=== PATIENT | female | born 1985 | race Caucasian/White ===

== ENCOUNTER 2023-10-19 10:56 | Inpatient (IN) | payer MEDICAID, OTHER, SELFPAY ==
[~2023-10-19] VITALS: Ht 157.5 cm; Wt 84.3 kg
[2023-10-19] MEDS ORDERED: ONDANSETRON 4MG 2ML VIAL IV ONE (12:00)
[2023-10-19] MEDS ORDERED: NS 1,000 ML IV ONE (12:00)
[2023-10-19] MEDS ORDERED: IPRATROPIUM 0.5MG/ALBUTEROL 2.5MG INH SOL UD 3ML (DUONEB) NEB ONE (12:05)
[2023-10-19] MEDS ORDERED: KETOROLAC 30 MG/ML 1ML VIAL IV ONE ×2 (12:35→22:00)
[2023-10-19 12:42] LABS: BASO # 0.1 10^3/uL (0.0-0.2); BASO % 0.5 % (0.0-1.0); EOS % 0.2 % (0.0-3.0); HEMATOCRIT 38.3 % (36.0-47.0); HEMOGLOBIN 13.7 g/dl (12.0-15.5); LYMPH # 1.8 10^3/uL (1.5-5.0); LYMPH % 16.1 % (24.0-44.0); MEAN CORPUSCULAR HEMOGLOBIN 36.8 pg (27.0-33.0); MEAN CORPUSCULAR HGB CONC 35.8 g/dl (32.0-36.5); MONO # 0.7 10^3/uL (0.0-0.8); MONO % 6.7 % (2.0-8.0); NEUTROPHILS # 8.3 10^3/uL (1.5-8.5); PLATELET COUNT, AUTOMATED 404 10^3/uL (150-450); RED BLOOD COUNT 3.72 10^6/uL (4.00-5.40)
[2023-10-19 13:17] LABS: CK-MB VALUE MASS < 1.0 NG/ML (<3.6); CPK CREATINE PHOSPHOKINASE 141 U/L (34-145)
[2023-10-19 13:23] LABS: HCG, SERUM QUALITATIVE NEGATIVE (NEGATIVE)
[2023-10-19 14:16] LABS: LIPASE 14 U/L (12-53)
[2023-10-19 14:28] LABS: ALBUMIN 2.3 G/DL (3.2-5.2); ALKALINE PHOSPHATASE 80 U/L (46-116); ALT/SGPT 20 U/L (7.0-40); AST/SGOT 33 U/L (<34); BILIRUBIN,DIRECT 0.3 MG/DL (<0.4); BILIRUBIN,TOTAL 0.6 MG/DL (0.3-1.2); BLOOD UREA NITROGEN < 5 MG/DL (9-23); CALCIUM LEVEL 7.3 MG/DL (8.5-10.1); CARBON DIOXIDE LEVEL 26 MMOL/L (20-31); CHLORIDE LEVEL 102 MMOL/L (98-107); CREATININE FOR GFR 0.57 MG/DL (0.55-1.30); GLOMERULAR FILTRATION RATE > 60.0 (>60); GLUCOSE, FASTING 119 MG/DL (60-100); MAGNESIUM LEVEL 1.1 MG/DL (1.8-2.4); POTASSIUM SERUM 2.8 MMOL/L (3.5-5.1); SODIUM LEVEL 141 MMOL/L (136-145); TOTAL PROTEIN 5.4 G/DL (5.7-8.2)
[2023-10-19] MEDS ORDERED: MAG SULF 1GM/100ML (MAG RUN) 1 GM in IV 1 EA IV ONE (14:45)
[2023-10-19] MEDS ORDERED: KCL 10MEQ/100ML SWI (KRUN) 10 MEQ in IV 1 EA IV ONE (14:45)
[2023-10-19] MEDS ORDERED: ISOVUE-370 76% 100ML VIAL As Ordered ONE (14:52)
[2023-10-19] MEDS ORDERED: NS 1,000 ML IV SCH (15:05)
[2023-10-19] MEDS ORDERED: MED REC IN PROGRESS XX SCH (15:15)
[2023-10-19] MEDS ORDERED: IRON15CH PO (15:27)
[2023-10-19] MEDS ORDERED: FERR325T3 PO (15:27)
[2023-10-19] MEDS ORDERED: CYAN100049 PO (15:27)
[2023-10-19] MEDS ORDERED: MULT-90 PO (15:27)
[2023-10-19] MEDS ORDERED: HOME MED LIST COMPLETE! XX SCH (15:35)
[2023-10-19] MEDS ORDERED: ACETAMINOPHEN TAB 650MG DOSE (2X325MG) PO ONE (17:15)
[2023-10-19] MEDS ORDERED: ACETAMINOPHEN TAB 650MG DOSE (2X325MG) PO PRN (18:20)
[2023-10-19 18:54] LABS: FOLATE 2.45 NG/ML (>5.4); VITAMIN B12 LEVEL 462 PG/ML (211-911)
[2023-10-19] MEDS: MAG SULF 1GM/100ML (MAG RUN) 1 GM in IV 1 EA IV SCH ×3 (19:07→22:09)
[2023-10-19 20:00] VITALS: BP 155/74; TEMP 97.7; O2SAT 97
[2023-10-19] MEDS ORDERED: SCOPOLAMINE 1MG TRANSDERMAL PATCH TOP SCH (20:00)
[2023-10-19 20:30] VITALS: BP 114/70; TEMP 97.7; O2SAT 99
[2023-10-19] MEDS: PANTOPRAZOLE 40MG VIAL IV SCH (20:53)
[2023-10-19] MEDS: HEPARIN SOD (PORCINE) 5000UNITS/ML 1ML VIAL/SYRINGE SC SCH (20:54)
[2023-10-19] MEDS: SUCRALFATE SUSP 1GM/10ML UD PO SCH (20:54)
[2023-10-19] MEDS ORDERED: CHOLESTYRAMINE 4GM PWD PKT PO SCH (21:00)
[2023-10-19] MEDS: LR 1,000 ML IV SCH (21:10)
[2023-10-19] MEDS: KCL 10MEQ/100ML SWI (KRUN) 10 MEQ in IV 1 EA IV SCH ×3 (21:11→23:37)
[2023-10-19] MEDS: CHOLESTYRAMINE 4GM PWD PKT PO SCH (22:16)
[2023-10-19] MEDS ORDERED: MORPHINE 2 MG/ML 1ML VIAL IV ONE (23:20)
[2023-10-20] VITALS (8 sets, daily range): BP systolic 103–134; BP diastolic 61–80; TEMP 96–98; O2SAT 95–100
[2023-10-20] MEDS: KCL 10MEQ/100ML SWI (KRUN) 10 MEQ in IV 1 EA IV SCH (01:15)
[2023-10-20] MEDS ORDERED: KCL 10MEQ/100ML SWI (KRUN) 10 MEQ in IV 1 EA IV SCH (01:15)
[2023-10-20] MEDS ORDERED: MORPHINE 2 MG/ML 1ML VIAL IV ONE (04:10)
[2023-10-20] MEDS: HEPARIN SOD (PORCINE) 5000UNITS/ML 1ML VIAL/SYRINGE SC SCH ×3 (04:33→21:08)
[2023-10-20] MEDS: LR 1,000 ML IV SCH ×2 (04:34→12:45)
[2023-10-20 06:39] LABS: BASO # 0.1 10^3/uL (0.0-0.2); BASO % 0.8 % (0.0-1.0); EOS % 0.5 % (0.0-3.0); HEMATOCRIT 33.1 % (36.0-47.0); LYMPH % 27.6 % (24.0-44.0); MEAN CORPUSCULAR HGB CONC 34.1 g/dl (32.0-36.5); MEAN CORPUSCULAR VOLUME 105.4 fl (80.0-96.0); MONO # 0.6 10^3/uL (0.0-0.8); MONO % 8.3 % (2.0-8.0); NEUTROPHILS # 4.6 10^3/uL (1.5-8.5); NEUTROPHILS % 62.4 % (36.0-66.0); RED BLOOD COUNT 3.14 10^6/uL (4.00-5.40); WHITE BLOOD COUNT 7.4 10^3/uL (4.0-10.0)
[2023-10-20 06:46] LABS: HEMOGLOBIN 11.3 g/dl (12.0-15.5)
[2023-10-20 06:47] LABS: PLATELET COUNT, AUTOMATED 170 10^3/uL (150-450)
[2023-10-20 07:03] LABS: ALBUMIN 1.9 G/DL (3.2-5.2); ALKALINE PHOSPHATASE 68 U/L (46-116); ALT/SGPT 16 U/L (7.0-40); AST/SGOT 32 U/L (<34); BILIRUBIN,TOTAL 0.5 MG/DL (0.3-1.2); BLOOD UREA NITROGEN 5 MG/DL (9-23); CALCIUM LEVEL 7.5 MG/DL (8.5-10.1); CARBON DIOXIDE LEVEL 27 MMOL/L (20-31); CHLORIDE LEVEL 103 MMOL/L (98-107); CREATININE FOR GFR 0.54 MG/DL (0.55-1.30); GLOMERULAR FILTRATION RATE > 60.0 (>60); GLUCOSE, FASTING 112 MG/DL (60-100); MAGNESIUM LEVEL 2.2 MG/DL (1.8-2.4); POTASSIUM SERUM 3.4 MMOL/L (3.5-5.1); SODIUM LEVEL 139 MMOL/L (136-145); TOTAL PROTEIN 4.6 G/DL (5.7-8.2)
[2023-10-20] MEDS: PANTOPRAZOLE 40MG VIAL IV SCH ×2 (08:40→21:08)
[2023-10-20] MEDS: SUCRALFATE SUSP 1GM/10ML UD PO SCH ×4 (08:40→21:08)
[2023-10-20] MEDS: ULTRACET TAB PO PRN ×2 (09:22→16:43)
[2023-10-20] MEDS: CHOLESTYRAMINE 4GM PWD PKT PO SCH ×2 (10:38→21:08)
[2023-10-20] MEDS: MORPHINE 2 MG/ML 1ML VIAL IV PRN ×3 (10:38→19:04)
[2023-10-20] MEDS ORDERED: POTASSIUM CHLORIDE 10MEQ SR TABLET PO ONE (15:00)
[2023-10-20] MEDS: MIRALAX *UNIT DOSE* 17GM PACKET PO SCH (17:41)
[2023-10-21] VITALS (8 sets, daily range): BP systolic 116–128; BP diastolic 68–90; TEMP 96.6–97.5; O2SAT 97–99
[2023-10-21] MEDS: MORPHINE 2 MG/ML 1ML VIAL IV PRN ×5 (00:05→20:25)
[2023-10-21] MEDS: HEPARIN SOD (PORCINE) 5000UNITS/ML 1ML VIAL/SYRINGE SC SCH ×3 (05:10→21:19)
[2023-10-21 05:27] LABS: HEMATOCRIT 35.1 % (36.0-47.0); HEMOGLOBIN 11.8 g/dl (12.0-15.5); MEAN CORPUSCULAR HEMOGLOBIN 36.1 pg (27.0-33.0); MEAN CORPUSCULAR HGB CONC 33.6 g/dl (32.0-36.5); MEAN CORPUSCULAR VOLUME 107.3 fl (80.0-96.0); RED BLOOD COUNT 3.27 10^6/uL (4.00-5.40); WHITE BLOOD COUNT 6.7 10^3/uL (4.0-10.0)
[2023-10-21 05:31] LABS: PLATELET COUNT, AUTOMATED 328 10^3/uL (150-450)
[2023-10-21 06:05] LABS: ALKALINE PHOSPHATASE 71 U/L (46-116); ALT/SGPT 26 U/L (7.0-40); AST/SGOT 60 U/L (<34); BILIRUBIN,TOTAL 0.3 MG/DL (0.3-1.2); BLOOD UREA NITROGEN < 5 MG/DL (9-23); CALCIUM LEVEL 7.8 MG/DL (8.5-10.1); CARBON DIOXIDE LEVEL 28 MMOL/L (20-31); CHLORIDE LEVEL 104 MMOL/L (98-107); CREATININE FOR GFR 0.62 MG/DL (0.55-1.30); GLOMERULAR FILTRATION RATE > 60.0 (>60); GLUCOSE, FASTING 86 MG/DL (60-100); MAGNESIUM LEVEL 1.8 MG/DL (1.8-2.4); POTASSIUM SERUM 3.6 MMOL/L (3.5-5.1); SODIUM LEVEL 139 MMOL/L (136-145)
[2023-10-21] MEDS: SUCRALFATE SUSP 1GM/10ML UD PO SCH ×4 (07:51→20:24)
[2023-10-21] MEDS: PRENATAL VITAMINS CHEWABLE TABLET PO SCH ×2 (09:00→17:34)
[2023-10-21] MEDS: MIRALAX *UNIT DOSE* 17GM PACKET PO SCH (09:01)
[2023-10-21] MEDS: PANTOPRAZOLE 40MG VIAL IV SCH ×2 (09:02→20:24)
[2023-10-21] MEDS: CHOLESTYRAMINE 4GM PWD PKT PO SCH ×2 (10:33→20:24)
[2023-10-21] MEDS: ULTRACET TAB PO PRN (17:31)
[2023-10-21] MEDS ORDERED: IBUPROFEN 600MG TAB PO PRN (20:40)
[2023-10-22] MEDS: MORPHINE 2 MG/ML 1ML VIAL IV PRN ×2 (03:36→08:28)
[2023-10-22 05:10] LABS: HEMATOCRIT 33.2 % (36.0-47.0); HEMOGLOBIN 11.4 g/dl (12.0-15.5); MEAN CORPUSCULAR HEMOGLOBIN 36.3 pg (27.0-33.0); MEAN CORPUSCULAR HGB CONC 34.3 g/dl (32.0-36.5); MEAN CORPUSCULAR VOLUME 105.7 fl (80.0-96.0); PLATELET COUNT, AUTOMATED 307 10^3/uL (150-450); RED BLOOD COUNT 3.14 10^6/uL (4.00-5.40); WHITE BLOOD COUNT 6.9 10^3/uL (4.0-10.0)
[2023-10-22 05:37] LABS: ALKALINE PHOSPHATASE 68 U/L (46-116); ALT/SGPT 28 U/L (7.0-40); AST/SGOT 53 U/L (<34); BILIRUBIN,TOTAL 0.4 MG/DL (0.3-1.2); BLOOD UREA NITROGEN 8 MG/DL (9-23); CALCIUM LEVEL 7.7 MG/DL (8.5-10.1); CARBON DIOXIDE LEVEL 26 MMOL/L (20-31); CHLORIDE LEVEL 107 MMOL/L (98-107); CREATININE FOR GFR 0.61 MG/DL (0.55-1.30); GLOMERULAR FILTRATION RATE > 60.0 (>60); GLUCOSE, FASTING 89 MG/DL (60-100); POTASSIUM SERUM 3.7 MMOL/L (3.5-5.1); SODIUM LEVEL 142 MMOL/L (136-145); TOTAL PROTEIN 4.8 G/DL (5.7-8.2)
[2023-10-22] MEDS: HEPARIN SOD (PORCINE) 5000UNITS/ML 1ML VIAL/SYRINGE SC SCH (05:51)
[2023-10-22 08:24] VITALS: BP 141/89; O2SAT 98
[2023-10-22] MEDS: SUCRALFATE SUSP 1GM/10ML UD PO SCH ×2 (08:27→11:45)
[2023-10-22] MEDS: PANTOPRAZOLE 40MG VIAL IV SCH (08:27)
[2023-10-22] MEDS: PRENATAL VITAMINS CHEWABLE TABLET PO SCH (08:27)
[2023-10-22 08:43] VITALS: TEMP 98
[2023-10-22] MEDS: MIRALAX *UNIT DOSE* 17GM PACKET PO SCH (09:00)
[2023-10-22] MEDS: CHOLESTYRAMINE 4GM PWD PKT PO SCH (09:00)
[2023-10-22] MEDS ORDERED: KETOROLAC 30 MG/ML 1ML VIAL IV ONE (09:55)
[2023-10-22] MEDS ORDERED: SUCR1TA PO (10:00)
[2023-10-22] MEDS ORDERED: PROT1TAB2 PO (10:01)
[2023-10-22] MEDS ORDERED: IBUP-1022 PO (10:01)
[2023-10-22 11:56] VITALS: BP 126/72; TEMP 97.8; O2SAT 100
== END 2023-10-22 13:01 | disposition home or self-care (01) | DRG 249 ==
LOC: M ED 10:56 → M ED INP 18:20 → ENRESERV 20:11 → M PCU 20:29
PROVIDERS: ADMIT Family Medicine; ATTEND Family Medicine
DX: R11.15 Cyclical vomiting syndrome unrelated to migraine (principal); E44.0 Moderate protein-calorie malnutrition; E83.42 Hypomagnesemia; E88.09 Other disorders of plasma-protein metabolism, not elsewhere classified; K76.0 Fatty (change of) liver, not elsewhere classified; E06.0 Acute thyroiditis; E87.6 Hypokalemia; Z90.49 Acquired absence of other specified parts of digestive tract; R94.31 Abnormal electrocardiogram [ECG] [EKG]; F32.A Depression, unspecified; F17.210 Nicotine dependence, cigarettes, uncomplicated; E53.8 Deficiency of other specified B group vitamins; M94.0 Chondrocostal junction syndrome [Tietze]; K29.60 Other gastritis without bleeding; F12.188 Cannabis abuse with other cannabis-induced disorder; Z88.0 Allergy status to penicillin